=== PATIENT | female | born 1935 | race African-American/Black ===

== ENCOUNTER 2017-08-26 08:56 | Emergency (ER) | payer OTHER ==
[~2017-08-26] VITALS: Ht 170.2 cm; Wt 91.0 kg
[2017-08-26] MEDS ORDERED: antihypertensive PO (09:09)
[2017-08-26 09:12] LABS: GLUCOSE,POINT OF CARE 224 MG/DL (70-110)
[2017-08-26] MEDS ORDERED: DiphenhydrAMINE HCL 50 MG/ML VIAL IM ONE (10:00)
[2017-08-26 11:04] VITALS: BP 145/99
== END 2017-08-26 11:50 | disposition home or self-care (01) ==
LOC: EMS 08:58
DX: H10.13 Acute atopic conjunctivitis, bilateral (principal); E11.9 Type 2 diabetes mellitus without complications; E78.00 Pure hypercholesterolemia, unspecified; I10 Essential (primary) hypertension
CPT/HCPCS: 82962; 96372; 99283; J1200